=== PATIENT | female | born 1985 | race Caucasian/White ===

== ENCOUNTER → 2016-04-09 | Outpatient (CLI) | payer BC ==
[~2016-04-09] MED LIST: AMITRIPTYLINE PO; IMT100 PO; LEVO1TAB35 PO
== END | disposition home or self-care (01) ==
LOC: C.MRI 06:32
PROVIDERS: ATTEND Family Medicine
DX: N28.1 Cyst of kidney, acquired (principal); R31.9 Hematuria, unspecified; R93.49 Abnormal radiologic findings on diagnostic imaging of other urinary organs

== ENCOUNTER → 2016-06-14 | Outpatient (CLI) | payer BC ==
[2016-06-14 14:49] LABS: BASO % 0.2 %; BASO ABS # 0.02 K/uL (0-0.2); COMPLETE YES; EOS % 2.3 %; HEMATOCRIT 39.4 % (37-47); IG% 0.1 %; LYMPH % 25.3 %; LYMPH ABS # 2.06 K/uL (1.2-3.4); MEAN CELL VOLUME 89.3 fL (80-100); MEAN CORPUSCULAR HEMOGLOBIN 30.4 pg (25-34); MEAN PLATELET VOLUME 10.6 fL (7.4-10.4); MONO % 10.1 %; PLATELET COUNT 249 K/uL (130-400); RED BLOOD COUNT 4.41 M/uL (4.2-5.4); WHITE BLOOD COUNT 8.13 K/uL (4.8-10.8)
[2016-06-14 15:05] LABS: BLOOD UREA NITROGEN 15 mg/dl (7-18); BUN/CREATININE RATIO 14.6 (10-20); CALCIUM 8.8 mg/dl (8.5-10.1); CARBON DIOXIDE 32 mmol/L (21-32); CHLORIDE 107 mmol/L (98-107); GLUCOSE 79 mg/dl (70-99); POTASSIUM 3.7 mmol/L (3.5-5.1); SODIUM 142 mmol/L (136-145)
== END | disposition home or self-care (01) ==
LOC: C.LAB 13:50
PROVIDERS: ATTEND Family Medicine Adolescent Medicine
DX: R25.2 Cramp and spasm (principal)

== ENCOUNTER → 2016-06-24 | Outpatient (CLI) | payer BC ==
--- NOTE | 2016-06-24 18:31 | DIAGNOSTIC IMAGING REPORT ---
MRI OF THE BRAIN WITHOUT IV CONTRAST CLINICAL HISTORY: Headache. COMPARISON STUDY: MRI of the brain dated 02/26/2012. TECHNIQUE: MRI of the brain was performed utilizing various T1 and T2-weighted sequences in the axial, sagittal, and coronal planes. IV contrast was not administered for this examination. FINDINGS: Brain parenchyma: The brain parenchyma is normal in appearance. There is no hemorrhage or mass effect. There is no restricted diffusion to suggest acute ischemia. Olivia-white matter differentiation is preserved. No extra-axial fluid collection is seen. The cerebellar tonsils are normal in configuration. Ventricles, sulci, and cisterns: Normal in configuration. Pituitary and sella: Unremarkable. Intracranial vasculature: Normal flow voids are maintained at the skull base. Orbits: The bony orbits are grossly intact. Orbital contents are normal in appearance. Sinuses and mastoids: Clear. Calvarium: Unremarkable. Cervical cord: Partially visualized cervical spinal cord is normal in morphology and signal intensity. IMPRESSION: Normal unenhanced MRI of the brain. Electronically signed by: Marcos Gutierres M.D. 06/24/2016 6:29 PM Dictated Date/Time: 06/24/2016 6:27 PM
== END | disposition home or self-care (01) ==
LOC: C.MRI 17:47
PROVIDERS: ATTEND Family Medicine
DX: R51 Headache (principal)

== ENCOUNTER 2019-10-01 13:35 | Observation (INO) ==
[2019-10-01] MEDS ORDERED: PENICILLIN G POTASSIUM 6 MU in DEXTROSE 5% 250 ML IV STA (18:19)
[2019-10-01] MEDS ORDERED: PENICILLIN G POTASSIUM 3 MU in DEXTROSE 5% 100 ML IV PRN (18:19)
--- NOTE | 2019-10-01 18:31 | History & Physical Report ---
Date of Service October 01, 2019 Assessment & Plan (1) with 37 weeks completed gestation: (2) Uterine contractions: May be in early labor but very slow change. She is gbs positive. PLan to continue to monitor. Will go ahead and give dose of pcn in case she is in labor and goes quickly once actively labors, for gbs positive. Explained that with lack of medical indication, cannot augment at 37 weeks. She expresses understanding. If she stops making change, will send home. If she progresses and demonstrates active labor, will admit. Fetus category one. History of Present Illness Chief Complaint: contractions Primary Care Provider: Baudilio Cramer MD Patient is a 33yowf with iup at 37 0/7 weeks who presents to labor and delivery complaining of contractions. New FOB. She notes she has not felt well last night and into today. Notes some bleeding when in the bathtube. A smear on a pad when she got here. Minimal bleeding under evalution. +fm. Patient notes she has never gone much past 38 weeks with either of her pregnancies. She has been monitored for 4 hours and noting irregular contractions q2-5min. cx checked by same nurse and has made some very small amount of cervical change. She was 1-2 on admission and now 3. she notes that she is increasingly uncomfortable and more back pain. labs--O+ab-/ri/rprnr/hepb-/hiv-/gc/ct- neg cf/sma/panorma, declined msafp, gtt x 2 nl gbs positive. Allergies Allergy/AdvReac Type Severity Reaction Status Date / Time erythromycin base Allergy Intermediate HIVES ALL Verified 10/01/19 13:45 OVER BODY Bactrim Allergy Unknown hives, Verified 07/25/15 09:31 facial swelling sulfamethoxazole Allergy Unknown hives, Verified 10/01/19 13:45 facial swelling trimethoprim Allergy Unknown hives, Verified 10/01/19 13:45 facial swelling Home Medications Home Medications Medication Instructions Recorded Confirmed Type vit-iron fum-folic ac 1 tab PO DAILY 10/01/19 10/01/19 History [ Vitamin] Patient History Medical History Abdominal pain (Inactive) Anemia Bladder infection Chicken pox Encounter for anatomic survey Endometriosis (Inactive) Flank pain (Inactive) Hematuria (Inactive) Hydronephrosis (Inactive) Hypotension Kidney disease Kidney stone Migraines Ovarian cyst (Resolved) Pelvic congestion syndrome (Inactive) Pelvic congestion syndrome (Inactive) of unknown anatomic location Reversal of sterilization Right flank pain (Inactive) Right flank pain (Inactive) Right ureter dilated (Inactive) RLS (restless legs syndrome) UPJ (ureteropelvic junction) obstruction Surgical History History of dilatation and curettage History of kidney surgery pyleoplasty on right History of reversal of tubal ligation History of tonsillectomy and adenoidectomy S/P ovarian cystectomy S/P tubal ligation Status post wisdom tooth extraction Family History Aunt Breast cancer Father Diabetes Hypertension Mother Hodgkins lymphoma Grandmother (Paternal) Hypertension Grandfather (Paternal) Prostate cancer Uncle Pancreatic cancer Kidney disease Other Brain cancer Heart disease Lung cancer Osteoporosis Social History Smoking Status: Never smoker Hx Alcohol Use: No Hx Substance Use: No Preferred Language: Arabic Communication Ability: Effective Pharmaceutical Botanist Required: No Beliefs That Will Affect Care: None marital status: Single marital status details: Derik Diez (30) [phone] Current Living Situation: Significant Other Current Living Situation Comment: lvies with FOB, 3 kids, 3 dogs, 1 cat, FOB to change litter. 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 Results & Data ([facility]) Vital Signs (Past 12 Hours) Vital Signs Temp Pulse Resp BP 10/01/19 16:11 36.7 C 80 20 112/59 L 10/01/19 13:42 36.7 C 101 H 20 109/67 Code Status & VTE Plan VTE Prophylaxis Plan VTE Prophylaxis will be ordered: No Coding Level of Care Code Admit/DC Same Day >8hr Level 1 Diagnoses with 37 weeks completed gestation Z3A.37 Uterine contractions
[2019-10-01] MEDS ORDERED: LACTATED RINGER'S 1,000 ML IV SCH (19:00)
--- NOTE | 2019-10-01 21:07 | Obstetrical Progress Note ---
Date of Service October 01, 2019 Assessment & Plan (1) Uterine contractions: certainly has made change from admission but not in active labor as of yet. Plan remains the same. cx may or may not be significantly different from exam by nursing. continue gbs prophylaxis. No indication for intervention at this time. Admission and Anticipated Discharge Date Admission Date: October 01, 2019 Subjective Patient continues to note things about the same. Physical Exam Constitutional: WD/WN, vitals as above Psychiatric: A+Ox3, euthymic affect Genitourinary: small smear of dark red blood on pad cx--4/80/-2 toco--q2-5min efm--140s with mod variability, +accels, no decels Results & Data ([facility]) Vital Signs (Past 12 Hours) Vital Signs Temp Pulse Resp BP 10/01/19 19:04 36.6 C 85 18 109/63 10/01/19 16:11 36.7 C 80 20 112/59 L 10/01/19 13:42 36.7 C 101 H 20 109/67 PG Care Time/CCT Total # of Minutes Spent Total Time Spent with Patient: Total time spent is greater than 50% in coordination of care (as documented) at patient's floor/unit and/or counseling patient: Coding Level of Care Code None Diagnoses Uterine contractions
--- NOTE | 2019-10-02 01:28 | Obstetrical Progress Note ---
Date of Service October 02, 2019 Assessment & Plan (1) Uterine contractions: contractions have pretty much spaced /improved. no further cervical since 8:30. Plan d/c home. will swab for covid prior to d/c. fetus category one. Call with any changes. Admission and Anticipated Discharge Date Admission Date: October 01, 2019 Subjective Patient has been sleeping for the past couple of hours. ctx have spaced for her. Physical Exam Constitutional: WD/WN, vitals as above Psychiatric: A+Ox3, euthymic affect Genitourinary: cx--4/80/-2 toco--spaced, mics and irritabilit efm--reactive Results & Data ([facility]) Vital Signs (Past 12 Hours) Vital Signs Temp Pulse Resp BP 10/01/19 22:55 36.8 C 86 18 106/59 L 10/01/19 19:04 36.6 C 85 18 109/63 10/01/19 16:11 36.7 C 80 20 112/59 L 10/01/19 13:42 36.7 C 101 H 20 109/67 PG Care Time/CCT Total # of Minutes Spent Total Time Spent with Patient: Total time spent is greater than 50% in coordination of care (as documented) at patient's floor/unit and/or counseling patient: Coding Level of Care Code 27172 OBS Care - Discharge Diagnoses Uterine contractions
--- NOTE | 2019-10-04 06:40 | Discharge Summary (DS) ---
ADMISSION DIAGNOSES: 1. Intrauterine at 37 and 0/7 weeks. 2. Uterine contractions. 3. GBS positive. 4. History of 2 previous deliveries around 38 weeks. DISCHARGE DIAGNOSES: 1. Intrauterine at 37 and 0/7 weeks. 2. Uterine contractions. 3. GBS positive. 4. History of 2 previous deliveries around 38 weeks. PROCEDURES: 1. IV fluid hydration. 2. Penicillin for GBS positive status. 3. Prolonged monitoring. HISTORY OF PRESENT ILLNESS: The patient is a 33-year-old white female 5, para 3-0-1-3 with intrauterine at 37 and 0/7 weeks, who presents to labor and delivery complaining of contractions. This is a new father of the baby. She notes that she has not felt well last night and into today. She noted some bleeding when she was in the bathtub earlier today. She had a smear on the pad when she got here. Minimal bleeding on her evaluation. Good movement. The patient notes that she has never gone much past 38 weeks with either of her previous pregnancies. She on initial presentation being checked by the same nurse was found to make a very small amount of cervical change. She was 1 to maybe 2 cm dilated on admission and was then changed to 3 cm dilated. She notes she was increasingly more uncomfortable with more back pain. For the rest of patient's history and physical, please see her history and physical on the chart. ASSESSMENT: This is a at 37 and 0/7 weeks with uterine contraction and some minimal cervical change. HOSPITAL COURSE: The patient is possibly in early labor. She has had some very slow cervical change that has been documented by the same nurse examiner. She is GBS positive. After 4 hours of observation, she changed from 1-2 cm dilated to 3 cm dilated and decision was made to admit because, 1. She has a history of rapid labor. 2. She is GBS positive. 3. She made some slow cervical change. We did discuss that given a lack of medical indication, that I would not augment her at 37 weeks, she expressed understanding of that, and if she stopped making change that we would send her home. The patient continued to have irregular contractions. When I finally checked the patient at 2105 in the evening, I felt she was a tight 4, 80%, -2. She was gela every 2-5 minutes and had a category 1 strip. I rechecked the patient at approximately 1:30 a.m. and her contractions had spaced with IV fluid hydration. The patient had been sleeping for at least 2 hours prior to me checking her. I rechecked her cervix and she was unchanged. The tocodynamometer showed space contractions with ____ and irritability and the heart tones showed a reactive NST. Discussed that she was not making further cervical change and she was comfortable with discharge. The patient was discharged to home. She had a COVID screen done prior to discharge given a higher probability of her laboring early and she was discharged to home. She has an appointment in the office this coming week.
== END 2019-10-02 01:40 | disposition home or self-care (01) ==
LOC: OPB 13:35 → 4S1 13:35

== ENCOUNTER 2019-10-18 10:40 | Inpatient (IN) ==
--- NOTE | 2019-10-18 11:14 | History & Physical Report ---
Date of Service October 18, 2019 Assessment & Plan (1) : Will continue to monitor patient. Can give Tums q6h prn for heartburn. Plan for pre-eclampsia labs, to r/o preeclampsia, due to hx of headache x6 days. Will start IV penicillin for GBS+ hx. Consider AROM 4 hours after abx. Patient planning for unmedicated . Plans to breastfeed baby. History of Present Illness Primary Care Provider: Braxton Cramer MD Sahra Castellano is a 33 y/o female currently at 39w3d EGA with an LISA 10/22/19 as determined by LMP who is here for . Her was complicated by GBS+ status and current s/p tubal reversal in December 2018 (new FOB). Patient was at her outpatient OB appointment today when she reported decreased movement x3 days and ctx increasing since yesterday, ctx now at 4-7minutes apart per pt. While in office, ctx q 2-4min and NST initially nonreactive but ultimately reactive when pt turned to left side. Pt reporting movement now. Pt opted for further eval in L&D. + contractions; + movement; - fluid loss; - bloody show Had regular appointments with OB. Blood type: O+ Antibody screen: Neg H.8 (08/02/19) Hct: 36.2% (08/02/19) Rubella: Immune (03/17/19) VDRL/RPR: Nonreactive (03/17/19) Gonorrhea: Neg (03/17/19) Chlamydia: Neg (03/17/19) HIV: Neg (03/17/19) HbSAg: Neg (03/17/19) GBS: POSITIVE (09/27/19) --> pt notes that she is currently on amoxicillin for a tooth infection; she was started on 500mg TID x10 days on 10/12/19 (6 days ago) Other screens: panorama 04/05/19 - low risk, female CF: neg 03/17/19 SMA: neg 03/17/19 Allergies Allergy/AdvReac Type Severity Reaction Status Date / Time erythromycin base Allergy Intermediate HIVES ALL Verified 10/18/19 11:00 OVER BODY Bactrim Allergy Unknown hives, Verified 07/25/15 09:31 facial swelling sulfamethoxazole Allergy Unknown hives, Verified 10/18/19 11:00 facial swelling trimethoprim Allergy Unknown hives, Verified 10/18/19 11:00 facial swelling Home Medications Home Medications Medication Instructions Recorded Confirmed Type PNV cmb#95-ferrous fumarate-FA 1 tab PO DAILY 10/18/19 10/18/19 History [] acetaminophen [Tylenol Extra 1,000 mg PO Q6H PRN 10/18/19 10/18/19 History Strength] amoxicillin 500 mg PO TID 10/18/19 10/18/19 History Patient History Medical History Abdominal pain (Inactive) Anemia Bladder infection Chicken pox Encounter for anatomic survey Endometriosis (Inactive) Flank pain (Inactive) Hematuria (Inactive) Hydronephrosis (Inactive) Hypotension Kidney disease Kidney stone Migraines Ovarian cyst (Resolved) Pelvic congestion syndrome (Inactive) Pelvic congestion syndrome (Inactive) of unknown anatomic location with 37 weeks completed gestation Reversal of sterilization Right flank pain (Inactive) Right flank pain (Inactive) Right ureter dilated (Inactive) RLS (restless legs syndrome) UPJ (ureteropelvic junction) obstruction Uterine contractions Surgical History History of dilatation and curettage History of kidney surgery pyleoplasty on right History of reversal of tubal ligation History of tonsillectomy and adenoidectomy S/P ovarian cystectomy S/P tubal ligation 12/2018 Status post wisdom tooth extraction Family History Aunt Breast cancer Father Diabetes Hypertension Mother Hodgkins lymphoma Grandmother (Paternal) Hypertension Grandfather (Paternal) Prostate cancer Uncle Pancreatic cancer Kidney disease Other Brain cancer Heart disease Lung cancer Osteoporosis Social History Smoking Status: Never smoker Hx Alcohol Use: No Hx Substance Use: No Preferred Language: Korean Communication Ability: Effective Canned Food Reconditioning Inspector Required: No Beliefs That Will Affect Care: None marital status: marital status details: Derik Diez (30) [phone] Current Living Situation: Significant Other Current Living Situation Comment: boyfriend Gonsalo, 3 children current occupational status: employed 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 Denies shortness of breath or cough. Denies CP. + nausea started last night w/ heartburn. Controlled with TUMS. Denies dysuria. + headache x6 days (pt relates this to the dental pain/tooth infection). Denies changes in vision. Physical Exam Physical Exam: General: Alert, oriented. No acute distress. Cardiac: Regular rate and rhythm, no murmurs/rubs/gallops. Respiratory: Clear to auscultation bilaterally a/p, no wheezes/rales/rhonchi. No increased work of breathing. Symmetrical chest rise. No respiratory distress. Abdomen: Gravid. Full term. Minimal tenderness to palpation in lower abdomen. Pelvic: Dilation 5cm; Effacement 90%; Station -[address] Redding Lower Extremities: No lower extremity edema or swelling. No deep calf pain. Levi's negative bilaterally Genitourinary: OB Exam Abdomen: + irregular contractions (q2-5min) Manual OB Exam: + cervical dilation 5 cm, + cervical effacement 90% and + station -2 OB Exam Monitor Tracing: + external FHT monitor used, + external uterine monitor used, + category I and + normal FHT variability Results & Data Vital Signs (Past 12 Hours) Vital Signs Temp Pulse Resp BP 10/18/19 10:47 36.8 C 16 10/18/19 10:46 90 113/66 Supervising Physician Co-Signing Physician Notes Resident Physician Supervision Note: I was present with Dr. Elise during the history and exam. I discussed the case with the resident and agree with the findings and plan as documented in the note. Any exceptions or clarifications are listed here: Admit to L&D, Cat 1 FHT. Pitocin, AROM, ok for epidural. Documented By: Rocio Redding,
[2019-10-18] MEDS ORDERED: OXYTOCIN 30 UNITS/500 ML BAG IV PRN ×3 (12:01→18:02)
[2019-10-18] MEDS ORDERED: PENICILLIN G POTASSIUM 3 MU in DEXTROSE 5% 100 ML IV PRN (12:11)
[2019-10-18] MEDS ORDERED: PENICILLIN G POTASSIUM 6 MU in DEXTROSE 5% 250 ML IV STA (12:11)
[2019-10-18 12:32] LABS: Hematocrit (blood only) 33.5 % (37-47); Mean Corpuscular Hemoglobin 29.4 pg (25-34); Mean Corpuscular Volume 89.6 fL (80-100); Mean Platelet Volume 10.7 fL (7.4-10.4); Platelet Count 218 K/uL (130-400); RDW Coefficient of Variation 14.1 % (11.5-14.5); RDW Standard Deviation 46.1 fL (36.4-46.3); Red Blood Count 3.74 M/uL (4.2-5.4); White Blood Count 17.42 K/uL (4.8-10.8)
[2019-10-18 12:36] LABS: Mean Corpuscular Hgb Conc 32.8 g/dL (32-36)
[2019-10-18 12:52] LABS: Albumin Level 2.4 gm/dl (3.4-5.0); BUN Creatinine Ratio 12.5 (10-20); Calcium 9.1 mg/dl (8.5-10.1); Creatinine Clr Calc Pharmacy 121.7 ml/min; Est GFR (African American) 124.5; Est GFR (Non-African American) 107.5; Potassium 3.8 mmol/L (3.5-5.1)
[2019-10-18 12:55] LABS: Albumin Globulin Ratio 0.6 (0.9-2); Bilirubin,Total 0.3 mg/dl (0.2-1); Total Protein 6.4 gm/dl (6.4-8.2)
[2019-10-18] MEDS: LACTATED RINGER'S 1,000 ML IV PRN ×2 (13:00→15:08)
[2019-10-18] MEDS ORDERED: ePHEDrine sulfate 50 MG/ML AMP ONE (14:28)
[2019-10-18] MEDS ORDERED: BUPIVACAINE 0.25% 30 ML VIAL ONE (14:28)
[2019-10-18] MEDS ORDERED: fentaNYL citrate 100 MCG/2 ML VIAL ONE (14:28)
[2019-10-18] MEDS ORDERED: fentaNYL 2MCG/ML ROPIV 1.25MG/ML 100 ML BAG EPI ONE (14:29)
--- NOTE | 2019-10-18 14:47 | Anesthesiology Consultation ---
Date of Service October 18, 2019 Assessment & Plan Chart Review Chart Review: Acceptable Risk for Surgery, Patient NOT seen in Pre Admission Testing and Acceptable Risk for Labor Epidural Consults Requested none ASA ASA2 Proposed Anesthesia Anesthesia Type: Labor Epidural and CSE Risk / Benefits Reviewed With: PT / POA / Parent / Guardian, Accepts Plan and Informed Consent Obtained History Height/Weight Height: 5 ft 8 in Weight: 81.647 kg Allergies Allergy/AdvReac Type Severity Reaction Status Date / Time erythromycin base Allergy Intermediate HIVES ALL Verified 10/18/19 11:00 OVER BODY Bactrim Allergy Unknown hives, Verified 07/25/15 09:31 facial swelling sulfamethoxazole Allergy Unknown hives, Verified 10/18/19 11:00 facial swelling trimethoprim Allergy Unknown hives, Verified 10/18/19 11:00 facial swelling Medications Home Medications Medication Instructions Recorded Confirmed Last Taken PNV cmb#95-ferrous fumarate-FA 1 tab PO DAILY 10/18/19 10/18/19 10/17/19 07:00 [] acetaminophen [Tylenol Extra 1,000 mg PO Q6H PRN 10/18/19 10/18/19 10/18/19 07:30 Strength] amoxicillin 500 mg PO TID 10/18/19 10/18/19 10/18/19 07:30 Active Medications Generic Name Dose Route Start Last Admin Trade Name Freq PRN Reason Stop Dose Admin Lactated Ringer's 1,000 mls @ 125 mls/hr 10/18/19 12:01 10/18/19 14:27 Lr IV 10/20/19 12:00 999 mls/hr .Q8H PRN Infusion L&D Protocol Protocol Oxytocin 30 units in 500 mls @ 5 mls/hr 10/18/19 12:16 10/18/19 14:10 Pitocin IV 10/20/19 12:15 0.3 units/hr .Q24H PRN 5 mls/hr Labor Induction/Augmentation Titration Protocol 0.3 UNITS/HR NPO Date Last Intake of Fluids: 10/18/19 Time Last Intake of Fluids: 14:00 Date Last Intake of Solids: 10/18/19 Time Last Intake of Solids: 01:00 Past Medical History Medical History Abdominal pain (Inactive) Anemia Bladder infection Chicken pox Encounter for anatomic survey Endometriosis (Inactive) Flank pain (Inactive) Hematuria (Inactive) Hydronephrosis (Inactive) Hypotension Kidney disease Kidney stone Migraines Ovarian cyst (Resolved) Pelvic congestion syndrome (Inactive) Pelvic congestion syndrome (Inactive) of unknown anatomic location with 37 weeks completed gestation Reversal of sterilization Right flank pain (Inactive) Right flank pain (Inactive) Right ureter dilated (Inactive) RLS (restless legs syndrome) UPJ (ureteropelvic junction) obstruction Uterine contractions Exercise / Class Metabolic Activity II 4-5 Yardwork/Stairs/Walk up hill Past Family History Family History Aunt Breast cancer Father Diabetes Hypertension Mother Hodgkins lymphoma Grandmother (Paternal) Hypertension Grandfather (Paternal) Prostate cancer Uncle Pancreatic cancer Kidney disease Other Brain cancer Heart disease Lung cancer Osteoporosis Past Surgical History Surgical History History of dilatation and curettage History of kidney surgery pyleoplasty on right History of reversal of tubal ligation History of tonsillectomy and adenoidectomy S/P ovarian cystectomy S/P tubal ligation 12/2018 Status post wisdom tooth extraction Past Anesthesia History No Hx of Anesthesia Complications and No Family Hx of Anesthesia Complications History of PONV No Hx of PONV and No Hx of Motion Sickness Social History Smoking Status: Never smoker Hx Alcohol Use: No Hx Substance Use: No substance use type: does not use Physical Exam Vital Signs Last Vital Signs Temp 36.8 C 10/18/19 10:47 Pulse 96 H 10/18/19 14:40 Resp 16 10/18/19 10:47 BP 101/64 10/18/19 14:04 Pulse Ox 100 10/18/19 14:40 Constitutional + obese ENMT Mouth: no dentition abnormality Thyromental Distance: < 3.5 Finger Breadths Mallampati Class: II Neck normal visual inspection and trachea midline; neck extension not limited Respiratory normal respiratory effort Auscultation: lungs clear to auscultation bilaterally Cardiovascular Rate/Rhythm: regular rate and regular rhythm Heart Sounds: no murmur Vessels: no carotid bruit Musculoskeletal Spine: lumbar spine normal to inspection; normal cervical ROM Neurologic moves all extremities Motor/Sensory: no sensory deficit Psychiatric Orientation: alert and oriented x 3 Testing Laboratory Results 10/18/19 12:19 10/18/19 12:19
[2019-10-18] MEDS ORDERED: NALOXONE HCL 0.4 MG/1 ML VIAL/CARP IV PRN (15:08)
[2019-10-18] MEDS ORDERED: DiphenhydrAMINE HCL 50 MG/ML VIAL IV PRN (15:08)
[2019-10-18] MEDS ORDERED: ePHEDrine sulfate 50 MG/ML AMP IV PRN (15:08)
[2019-10-18] MEDS ORDERED: ONDANSETRON INJ 2 MG/ML 2 ML VIAL IV PRN (15:08)
[2019-10-18] MEDS ORDERED: PROMETHAZINE HCL 25 MG in SODIUM CHLORIDE 0.9% 50 ML IV PRN (15:08)
[2019-10-18] MEDS ORDERED: NALOXONE HCL 1 MG in SODIUM CHLORIDE 0.9% 1000ML 1,000 ML IV PRN (15:08)
[2019-10-18] MEDS ORDERED: fentaNYL 2MCG/ML ROPIV 1.25MG/ML 100 ML BAG EPI PRN (15:08)
--- NOTE | 2019-10-18 17:57 | Delivery Summary ---
Vaginal Delivery Summary Date of Service October 18, 2019 Vaginal Delivery Summary Vaginal Delivery Summary: Pre-delivery diagnoses: 33yo @ 39 3/7, spont labor, GBS+ Post-delivery diagnoses: same Procedure: spontaneous vaginal delivery Surgeon: Rocio Redding DO Complications: none Findings: Viable female . Apgars: 8/9 . Weight pending, please see nursery records Estimated blood loss: 300ml Description of delivery: The patient progressed to complete with epidural anesthesia and 2 doses PCN G for GBS prophylaxis. AROM performed for thin mec. She then began to push. She spontaneously vaginally delivered a viable from the cephalic presentation. The head delivered in PIEDAD position. The anterior shoulder delivered, followed by the posterior shoulder, followed by the body. No nuchal cord. The baby was placed on mother's abdomen and a spontaneous cry was heard. The cord was doubly clamped and cut. Cord blood was obtained. The placenta was delivered spontaneously intact with a 3-vessel cord, marginal insertion of cord. The uterus and vagina were swept of clots and debris. IV pitocin was given. The uterus became firm. The cervix, vagina, and perineum were inspected and no lacerations were noted. Excellent hemostasis was observed. The mother and baby are recovering in stable and good condition in the room. Sponge and instrument counts were correct x 2. Rocio Redding DO [facility]
[2019-10-18] MEDS ORDERED: OXYCODONE/ACETAMINOPHEN 5mg/325mg TAB PO PRN (18:02)
[2019-10-18] MEDS ORDERED: bisacodyL 10 MG SUPP PR PRN (18:02)
[2019-10-18] MEDS ORDERED: HYDROCORTISONE ACETATE 25 MG SUPP PR PRN (18:02)
[2019-10-18] MEDS ORDERED: BENZOCAINE 20% AER SPR 82.5 GM CAN EXT PRN (18:02)
[2019-10-18] MEDS ORDERED: DIPHTHERIA/TETANUS/PERTUSSIS 0.5 ML SYR/VIAL IM ONE (18:02)
[2019-10-18] MEDS ORDERED: SUPERCREAM 0.870% 15 GM JAR EXT PRN (18:02)
[2019-10-18] MEDS ORDERED: ACETAMINOPHEN 325 MG TAB PO PRN (18:02)
--- NOTE | 2019-10-18 18:25 | Anesthesia Procedure Note ---
Date of Service October 18, 2019 Anesthesia Post Epidural Note Vital Signs Vital Signs: Temp Pulse Resp BP Pulse Ox 36.8 C 73 22 103/57 L 100 10/18/19 15:10 10/18/19 18:19 10/18/19 17:30 10/18/19 18:19 10/18/19 17:35 Notes Mental Status: alert / awake / arousable Nausea / Vomiting: adequately controlled Pain: adequately controlled Airway Patency, RR, SpO2: stable & adequate BP & HR: stable & adequate Hydration State: stable & adequate Neuraxial Anesthesia: was administered and sensory block is resolving Anesthetic Complications: no major complications apparent Epidural: Removed without complications and With tip intact
[2019-10-18] MEDS: AMOXICILLIN 500 MG CAP PO SCH (21:25)
[2019-10-18] MEDS: DOCUSATE SODIUM 100 MG CAP PO SCH (21:25)
[2019-10-19] MEDS: IBUPROFEN 600 MG TAB PO PRN ×3 (00:38→14:48)
--- NOTE | 2019-10-19 06:42 | Medical Student Progress Note ---
Date of Service October 19, 2019 Assessment & Plan (1) : IV penicillin G given for GBS+ status 4+ hours prior to delivery. Patient reported CUEVAS; labs performed to r/o pre-eclampsia. Plt, AST, ALT, TBili, and Cr all within normal range for . 5,000 mg of acetaminophen taken for toothache on day prior to admission, 8/10, LFTs as above. (2) Normal course: Continue to ambulate. Continue to advance feeds as tolerated. Pain well controlled at this time; continue 650 mg ibuprofen q6h PRN. at this time; continue. Continue to monitor. Admission and Anticipated Discharge Date Admission Date: October 18, 2019 Subjective Mrs. Sahra Castellano is a 33-year-old who is PPD #1 after at 39 weeks 3 days her course was complicated by GBS+ status for which she was treated with IV penicillin G 4+ hours prior to delivery. She reports feeling well. She states that her abdominal pain is a 2/10 and with one 650 mg dose of ibuprofen at 1AM. Voiding without difficulty or dysuria. Tolerated dinner last night with no nausea or vomiting. She does endorses flatus but no bowel movement yet. She endorses lochia; however, she states it has been very mild with little need to change her pad. She is ambulating well. She is currently breast feeding and states that this is going well. Review of Systems Denies fever and chills. Denies shortness of breath and cough. Denies chest pain. Denies breast pain or abnormal discharge. Denies dysuria, frequency, and urgency. Denies leg pain, swelling, and warmth. Denies headache. Physical Exam Constitutional: WD/WN, vitals as above ENMT: Mouth: no dentition abnormality Mallampati Class: II Neck: normal visual inspection; neck extension not limited Respiratory: normal respiratory effort Auscultation: lungs clear to auscultation bilaterally; no crackles, no rales, no rhonchi and no wheezes Cardiovascular: Rate/Rhythm: regular rate and regular rhythm Heart Sounds: normal S1 and normal S2; no murmur Extremities: no calf tenderness, no pedal edema and no edema Gastrointestinal (Abdomen): normal bowel sounds, soft, nontender, no hepatosplenomegaly Uterus firm non-tender at 1 cm below the umbilicus. Musculoskeletal: no cyanosis or clubbing, extremities motor strength 5/5 Spine: lumbar spine normal to inspection No calor, erythema, or edema in the bilateral lower extremities. Negative Levi's sign bilaterally. Skin: no rashes, warm and dry Neurologic: moves all extremities Motor/Sensory: no sensory deficit Psychiatric: A+Ox3, euthymic affect Orientation: oriented x 3 Results & Data ([facility]) Vital Signs (Past 12 Hours) Vital Signs Temp Pulse Pulse Resp BP BP Pulse Ox 10/19/19 04:40 36.4 C L 82 16 103/61 98 10/19/19 00:40 36.5 C 83 18 101/61 98 10/18/19 20:45 36.5 C 82 82 20 100/62 100/62 99 10/18/19 20:25 92 H 20 105/65 10/18/19 20:04 92 H 105/65 10/18/19 19:50 20 103/65 10/18/19 19:49 103/65 10/18/19 19:34 93 H 107/61 10/18/19 19:20 36.7 C 104 H 20 105/59 L 10/18/19 19:19 91 H 107/65 10/18/19 19:05 104 H 105/59 L 10/18/19 18:52 93 H 111/59 L 10/18/19 18:37 86 110/63 Supervising Attestation Medical Student Supervision Note: I was present with medical student during the history and exam. I discussed the case with the resident and agree with the findings and plan as documented in the note. Any exceptions or clarifications are listed here: please see signed resident note. Documented By: Rocio Redding DO
--- NOTE | 2019-10-19 06:45 | Obstetrical Progress Note ---
Date of Service <Radhika Elise DO - Last Filed: 10/19/19 07:41> October 19, 2019 Assessment & Plan <Radhika Elise DO - Last Filed: 10/19/19 07:41> (1) Normal course: - Feels well today. Eating well, voiding well, ambulating well. - Encouraged patient to continue . - Pain well controlled with ibuprofen 600mg Q4H PRN - Routine vaginal delivery care -- OOB, ambulation, diet progression as tolerated - After discharge will have 6 week follow-up with Dr. Redding. - h/h this morning 10.06/06. Will start supplemental iron. Subjective <Radhika Elise DO - Last Filed: 10/19/19 07:41> Sahra Castellano is a 33 y/o female who is PPD #1 following w/ epidural at 39 3/7 weeks. Pt was GBS+ and received penicillin G x2 prior to delivery. She reports feeling well overall this morning. Minimal abdominal cramping & 2-3/10 pain well managed on analgesics. Voiding without difficulty. Tolerating meals overnight w/o nausea or vomiting. She has been able to ambulate some. + passing gas but no bowel movement. Has some persistent lochia with some improvement this morning; lochia now white. Currently breast feeding. Review of Systems Denies fever, chills, sweats Denies shortness of breath. Denies chest pain. Denies breast pain. Denies dysuria. Denies leg pain or leg swelling. Denies headache or changes in vision. Physical Exam <Radhika Elise DO - Last Filed: 10/19/19 07:41> General: Alert, oriented. No acute distress. Cardiac: Regular rate and rhythm. No murmurs. Respiratory: Clear to auscultation bilaterally a/p, no wheezes/rales/rhonchi. No increased work of breathing. Symmetrical chest rise. No respiratory distress. Abdomen: Soft, nontender, nondistended. Bowel sounds present. Uterus: Uterine fundus firm, palpable 1 cm below umbilicus. Lower Extremities: No lower extremity edema or swelling. No deep calf pain. Levi's negative bilaterally. Results & Data ([facility]) <Radhika Elise, DO - Last Filed: 10/19/19 07:41> Vital Signs (Past 12 Hours) Vital Signs Temp Pulse Pulse Resp BP BP Pulse Ox 10/19/19 04:40 36.4 C L 82 16 103/61 98 10/19/19 00:40 36.5 C 83 18 101/61 98 10/18/19 20:45 36.5 C 82 82 20 100/62 100/62 99 10/18/19 20:25 92 H 20 105/65 10/18/19 20:04 92 H 105/65 10/18/19 19:50 20 103/65 10/18/19 19:49 103/65 10/18/19 19:34 93 H 107/61 10/18/19 19:20 36.7 C 104 H 20 105/59 L 10/18/19 19:19 91 H 107/65 10/18/19 19:05 104 H 105/59 L 10/18/19 18:52 93 H 111/59 L <Rocio Redding, - Last Filed: 10/19/19 07:49> Co-Signing Physician Notes Resident Physician Supervision Note: I was present with Dr. Elise during the history and exam. I discussed the case with the resident and agree with the findings and plan as documented in the note. Any exceptions or clarifications are listed here: PPD#1 doing well. Tooth feeling better. Would like to go home today. Documented By: Rocio Redding DO
[2019-10-19 07:13] LABS: Hemoglobin 10.3 g/dL (12.0-16.0)
[2019-10-19] MEDS ORDERED: PRENATAL VITAMIN 1 TAB PO SCH (08:00)
[2019-10-19] MEDS: AMOXICILLIN 500 MG CAP PO SCH ×2 (09:16→14:48)
[2019-10-19] MEDS: DOCUSATE SODIUM 100 MG CAP PO SCH (09:17)
[2019-10-19 16:58] VITALS: BP 97/68; PULSE 80; TEMP 97.5; O2SAT 99
[2019-10-19] MEDS ORDERED: bisacodyL 5 MG TABEC PO SCH (20:00)
== END 2019-10-19 20:15 | disposition home or self-care (01) | DRG 807 ==
LOC: OPB 10:40 → 4S1 10:41 → 4S2 20:46

== ENCOUNTER 2022-01-16 18:11 | Inpatient (IN) ==
[2022-01-16] MEDS ORDERED: LACTATED RINGER'S 1,000 ML IV PRN (18:37)
[2022-01-16] MEDS ORDERED: LIDOCAINE 1% LOCAL 20 ML VIAL INFIL PRN (18:37)
[2022-01-16] MEDS ORDERED: OXYTOCIN 30 UNITS/500 ML BAG IV PRN ×2 (18:37→20:03)
[2022-01-16 19:20] LABS: Hematocrit (blood only) 35.1 % (34.1-44.9); Hemoglobin 11.8 g/dl (12.0-16.0); Mean Corpuscular Hemoglobin 29.9 pg (25.0-34.0); Mean Corpuscular Hgb Conc 33.6 g/dL (32.0-36.0); Mean Corpuscular Volume 89.1 fL (80.0-100.0); Mean Platelet Volume 11.4 fL (9.4-12.3); Platelet Count 209 K/uL (130-400); RDW Coefficient of Variation 14.4 % (11.5-14.5); RDW Standard Deviation 46.9 fL (36.4-46.3); Red Blood Count 3.94 M/uL (3.93-5.22); White Blood Count 11.88 K/ul (4.8-10.8)
[2022-01-16] MEDS ORDERED: BUTORPHANOL TARTRATE 1 MG/ML VIAL ONE (19:29)
--- NOTE | 2022-01-16 19:41 | Delivery Summary ---
Vaginal Delivery Summary Date of Service January 16, 2022 Vaginal Delivery Summary 36yo at term with active labor. Was admitted and awaiting epidural however with srom sudden urge to push. Cx exam ant lip/100/+2. Began pushing and lip reduced in one push. Readied for delivery. The patient pushed over one contraction to deliver a viable female Apgars 9 and 9 via over intact perineum. With delivery of the cephalic a loose nuchal cord x 1 was reduced and a moderate shoulder dystocia was encountered relieved with gentle downward traction, airam maneuvers and suprapubic pressure and continued maternal expulsive efforts. was vigorous and crying at . Mouth and nose bulb suctioned. Cord clamped at 30 seconds of life and to maternal abdomen where the cord was then doubly clamped and cut. Placenta delivered spontaneously and intact, three-vessel cord. Hemostasis achieved with dilute pitocin and uterine massage. Cervix and sulci intact. EBL 300 cc. Mother and baby stable in recovery. Circumstances of delivery explained to couple and they were given time to ask questions and denied any questions or concerns. MNP Vaginal Delivery Charge Delivery Type Details:
[2022-01-16] MEDS ORDERED: DIPHTHERIA/TETANUS/PERTUSSIS 0.5 ML SYR/VIAL IM ONE (20:03)
[2022-01-16] MEDS ORDERED: BUTORPHANOL TARTRATE 1 MG/ML VIAL IV STA (20:03)
[2022-01-16] MEDS ORDERED: bisacodyL 10 MG SUPP PR PRN (20:03)
[2022-01-16] MEDS ORDERED: HYDROCORTISONE ACETATE 25 MG SUPP PR PRN (20:03)
[2022-01-16] MEDS ORDERED: BENZOCAINE 20% AER SPR 82.5 GM CAN EXT PRN (20:03)
[2022-01-16] MEDS ORDERED: oxyCODONE/ACETAMINOPHEN 5mg/325mg TAB PO PRN (20:03)
[2022-01-16] MEDS ORDERED: ACETAMINOPHEN 325 MG TAB PO PRN (20:03)
[2022-01-16] MEDS ORDERED: OXYTOCIN 20 UNITS in LACTATED RINGER'S 1,000 ML IV SCH (20:15)
[2022-01-16] MEDS: DOCUSATE SODIUM 100 MG CAP PO SCH (21:29)
[2022-01-16] MEDS: IBUPROFEN 600 MG TAB PO PRN (21:39)
[2022-01-17] MEDS: IBUPROFEN 600 MG TAB PO PRN ×4 (03:17→20:04)
--- NOTE | 2022-01-17 06:01 | Obstetrical Progress Note ---
Date of Service January 17, 2022 Assessment & Plan (1) Supervision of elderly multigravida: (2) History of reversal of tubal ligation: Plan s/p PPD#1: Vital signs reviewed and WNL, Tmax 36.8 Hemoglobin 11.8 (01/16) O+, GBS negative, Rubella immune Continue regular diet, treat pain as needed Encourage ambulation Admission and Anticipated Discharge Date Admission Date: January 16, 2022 Supervising Physician Co-Signing Physician Notes Resident Physician Supervision Note: I interviewed and examined the patient. Discussed with Dr. Covington and agree with findings and plan as documented in the note. Any exceptions or clarifications are listed here: stable, routine care. instructions reviewed in case dc later today. f/u 6wks. abd soft ff nt, ext nt calves. Documented By: Sarah Christopher MD, FACOG Subjective Sahra is a 36 y/o female who is PPD #1 following vaginal delivery at 39 6/7 weeks. She is s/p tubal ligation reversal, her was complicated by advanced maternal age. She reports feeling well overall this morning. Notes some abdominal cramping but pain well managed on analgesics. Voiding without issue. Tolerating meals overnight and able to ambulate some. Has some persistent lochia without significant change overnight. Currently breast feeding. Review of Systems Constitutional: no fever, no chills and no sweats Respiratory: no cough, no dyspnea and no wheezing Cardiovascular: no chest pain, no palpitations and no calf pain Genitourinary: no dysuria Neurologic: no headache(s) Physical Exam Constitutional: WD/WN, vitals as above no acute distress Respiratory: no respiratory distress Auscultation: lungs clear to auscultation bilaterally; no rales, no rhonchi and no wheezes Cardiovascular: RRR, no murmur, no edema Extremities: no calf tenderness and no edema Negative Levi's sign bilaterally. Gastrointestinal (Abdomen): Inspection/Auscultation: normal bowel sounds Genitourinary: Uterine fundus firm, palpable below the umbilicus. Results & Data ([facility]) Vital Signs (Past 12 Hours) Vital Signs Temp Pulse Pulse Resp BP BP Pulse Ox 01/17/22 03:08 36.8 C 72 18 97/59 L 98 01/16/22 22:33 36.5 C 91 H 18 100/64 97 01/16/22 21:45 20 01/16/22 21:15 20 01/16/22 20:45 20 01/16/22 20:30 20 01/16/22 20:15 18 01/16/22 20:00 36.5 C 18 01/16/22 19:45 20 01/16/22 21:54 72 121/57 L 01/16/22 21:44 79 128/63 01/16/22 21:34 92 H 112/58 L 01/16/22 21:24 74 110/59 L 01/16/22 21:14 83 111/57 L 01/16/22 21:04 80 115/64 01/16/22 20:54 80 100/57 L 01/16/22 20:44 73 107/58 L 01/16/22 20:34 78 105/61 01/16/22 20:24 72 114/68 01/16/22 20:14 74 110/86 01/16/22 20:04 72 121/68 01/16/22 19:53 77 118/71 01/16/22 19:05 22 01/16/22 19:05 36.4 C L 22 01/16/22 18:55 82 121/60 01/16/22 18:32 89 121/77 01/16/22 18:26 20 O2 Del Method 01/17/22 03:08 Room Air 01/16/22 22:33 Room Air 01/16/22 21:45 01/16/22 21:15 01/16/22 20:45 01/16/22 20:30 01/16/22 20:15 01/16/22 20:00 01/16/22 19:45 01/16/22 21:54 01/16/22 21:44 01/16/22 21:34 01/16/22 21:24 01/16/22 21:14 01/16/22 21:04 01/16/22 20:54 01/16/22 20:44 01/16/22 20:34 01/16/22 20:24 01/16/22 20:14 01/16/22 20:04 01/16/22 19:53 01/16/22 19:05 01/16/22 19:05 01/16/22 18:55 01/16/22 18:32 01/16/22 18:26 Resident Activity Tracking Resident Involvement: Resident Care Provided Care Provided: OB Delivery
[2022-01-17] MEDS ORDERED: PRENATAL VITAMIN 1 TAB PO SCH (08:00)
[2022-01-17] MEDS: DOCUSATE SODIUM 100 MG CAP PO SCH ×2 (08:36→20:05)
== END 2022-01-17 22:35 | disposition home or self-care (01) | DRG 807 ==
LOC: OPB 18:11 → 4S1 18:13 → 4E2 22:53